=== PATIENT | female | born 1970 | race Caucasian/White ===

== ENCOUNTER 2020-12-30 20:40 | Emergency (ER) | payer BC ==
[~2020-12-30] VITALS: Ht 172.7 cm; Wt 60.3 kg
[2020-12-30 21:15] VITALS: BP_SYST 129
--- NOTE | 2020-12-30 21:15 | NUR ---
PT TO BED 1 FOR EVALUATION.
--- NOTE | 2020-12-30 21:23 | NUR ---
ER at bedside examining patient.
--- NOTE | 2020-12-30 21:27 | NUR ---
PT ARRIVED TO ER WITH COMPLAINSTS OF DEHYDRATION AND WEAKNESS FOR A FEW WEEKS NOW. PT STATED SHE HAS BEEN DONATED BLOOD EVERY 2 MONTHS DUE TO A " HIGH IRON IN MY BLOOD" AND HAS BEEN FEELING WEAK SINCE HER LAST BLOOD DONATION ON OCTOBER. SHE STATES SHE HAS BEEN EXPERIENCING EPISODES OF FEELING BLACKING OUT AND WEAK A COUPLE TIMES. PT HAS 0/10 PAIN, AND HAS NO SOB, NAUSEA OR VOMITING
[2020-12-30] MEDS ORDERED: NACL 0.9% 1,000 ML IV ONE (21:30)
[2020-12-30 21:46] LABS: BASOPHILS % (AUTO) 0.8 % (0.0-2.0); EOSINOPHILS # (AUTO) 0.1 K/uL (0.0-0.4); EOSINOPHILS % (AUTO) 1.9 % (0.0-4.0); HEMATOCRIT 39.3 % (36-48); HEMOGLOBIN 13.2 g/dL (12.0-16.0); LYMPHOCYTES # (AUTO) 1.7 K/uL (1.0-5.5); LYMPHOCYTES % (AUTO) 28.8 % (20.5-51.5); MEAN CORPUSCULAR HEMOGLOBIN 33 pg (27-31); MEAN CORPUSCULAR HGB CONC 34 % (32-36); MEAN CORPUSCULAR VOLUME 100 fL (79.0-98.0); MONOCYTES # (AUTO) 0.5 K/uL (0.0-1.0); MONOCYTES % (AUTO) 9.3 % (1.7-9.3); NEUTROPHILS # (AUTO) 3.5 K/uL (1.8-7.7); NEUTROPHILS % (AUTO) 59.2 % (40.0-70.0); PLATELET COUNT (AUTO) 214 K/uL (130-430); RED BLOOD CELL COUNT(AUTO) 3.95 MIL/uL (4.2-6.2); RED CELL DISTRIBUTION WIDTH 12.5 % (9.0-15.0); WHITE BLOOD COUNT (AUTO) 5.8 K/uL (4.8-10.8)
--- NOTE | 2020-12-30 21:46 | NUR ---
# 20 gauge angiocath placed to RAC. Use of asceptic technique. Opsite placed over site. Blood return noted. Blood for lab drawn from site. Flushed with 10 cc of normal saline. No evidence of infiltration noted. Patient tolerated well.
[2020-12-30 22:01] LABS: PROTHROMBIN TIME 10.4 SECS (9.5-12.5)
[2020-12-30 22:11] LABS: ALANINE AMINOTRANSFERASE 24 U/L (12-78); ALBUMIN 3.8 g/dL (3.4-4.8); ANION GAP 4 (5-15); ASPARTATE AMINOTRANSFERASE 24 U/L (10-37); CALCIUM 9.1 mg/dL (8.4-11.0); CHLORIDE 101 mmol/L (98-107); CREATININE 0.68 mg/dL (0.55-1.30); GLUCOSE 86 mg/dL (70-99); SODIUM SERUM 138 mmol/L (136-145); TOTAL BILIRUBIN 0.2 mg/dL (0.0-1.0); UREA NITROGEN, BLOOD 19 mg/dL (8-21)
[2020-12-30 22:12] LABS: GFR AFRICAN AMERICAN 118 mL/min (>90)
[2020-12-30 22:25] LABS: ACETONE, SERUM NEGATIVE (NEGATIVE)
[2020-12-30 22:47] LABS: CKMB RELATIVE INDEX 0.8 (0.0-2.9); CREATINE KINASE MB 2.5 ng/mL (0-3.6)
[2020-12-30 22:58] LABS: BILIRUBIN,URINE NEGATIVE (NEGATIVE); BLOOD, URINE NEGATIVE (NEGATIVE); CLARITY/URINE CLEAR (CLEAR); GLUCOSE,URINE NEGATIVE (NEGATIVE); KETONES,URINE NEGATIVE (NEGATIVE); LEUKOCYTE ESTERASE ,URINE NEGATIVE (NEGATIVE); NITRITE, URINE NEGATIVE (NEGATIVE); PROTEIN URINE NEGATIVE (NEGATIVE); UROBILINOGEN,URINE 0.2 (0.2-1.0)
--- NOTE | 2020-12-30 23:06 | NUR ---
PT IS CALM AND RESTING IN BED. NO CHANGES AT THIS TIME
[2020-12-30 23:07] LABS: COLOR,URINE STRAW (YELLOW)
[2020-12-30 23:24] VITALS: BP_SYST 107
== END 2020-12-30 23:24 | disposition home or self-care (01) ==
LOC: SED 20:40
DX: R53.83 Other fatigue (principal); E86.0 Dehydration; E03.9 Hypothyroidism, unspecified
CPT/HCPCS: 36415; 71045; 80053; 81003; 81025; 82009; 82550; 82553; 83605; 84484; 85025; 85610; 85730; 93005; 96360; 99285; J7030